=== PATIENT | female | born 1940 | race Caucasian/White ===

== ENCOUNTER 2017-08-18 13:26 | Emergency (ER) | payer OTHER, BC ==
--- NOTE | 2017-08-18 15:27 | RAD REPORT ---
EXAM DESCRIPTION: RAD - Hand Left 3 View - 08/18/2017 2:43 pm CLINICAL HISTORY: Blunt force trauma, injury distal third digit COMPARISON: None. FINDINGS: No fracture, dislocation or periosteal reaction noted. IP joint degenerative changes are p resent. There is degenerative change at the third MCP joint and mild degenerative change at the first carpal - metacarpal articulation. No air or foreign body in the soft tissues. IMPRESSION: No fracture identified. No foreign body.
--- NOTE | 2017-08-18 15:48 | ER ---
Nurse's Notes [facility] Name: Bernice Lund Age: 77 yrs Sex: Female : 1940 Arrival Date: 08/18/2017 Time: 13:30 Bed 12 Private MD: Trever Villareal V Diagnosis: Contusion of left index finger without damage to nail;Contusion of left middle finger without damage to nail Presentation: 08/18 13:39 Presenting complaint: Patient states: 30 mins ago, i slammed my index and the middle hj finger on my L hand on the garage door;. Transition of care: patient was not received from another setting of care. Onset of symptoms was August 18, 2017. Initial Sepsis Screen: Does the patient meet any 2 criteria? No. Patient's initial sepsis screen is negative. Does the patient have a suspected source of infection? No. Patient's initial sepsis screen is negative. Care prior to arrival: None. 13:39 Method Of Arrival: Ambulatory 13:39 Acuity: BONNIE 4 hj Triage Assessment: 13:44 General: Appears in no apparent distress. uncomfortable, Behavior is calm, cooperative, hj appropriate for age. Pain: Complains of pain in left hand Musculoskeletal: Reports pain in left hand. Injury Description: Crush injury. Historical: - Allergies: 13:44 nitrofurantoin; hj - Home Meds: 13:44 levothyroxine 50 mcg tab 1 tab once daily [Active]; Prednisolone 3 mg Oral once daily hj [Active]; atorvastatin 10 mg oral tab 1 tab once daily [Active]; - PMHx: 13:44 Hyperlipidemia; hj - PSHx: 13:44 bladder; Hernia repair; Hysterectomy; hj - Immunization history:: Adult Immunizations. - Family history:: not pertinent. - Social history:: Smoking status: Patient/guardian denies using tobacco. - Hospitalizations: : No recent hospitalization is reported. Screenin:09 Abuse screen: Denies threats or abuse. Nutritional screening: No deficits noted. la1 Tuberculosis screening: No symptoms or risk factors identified. Fall Risk None identified. Assessment: 15:09 General: Appears in no apparent distress. Behavior is calm, cooperative. Pain: la1 Complains of pain in palmar aspect of distal phalanx of left index finger and palmar aspect of middle phalanx of left index finger. Neuro: Level of Consciousness is awake, alert, obeys commands, Oriented to person, place, time, situation. Cardiovascular: Capillary refill < 3 seconds Patient's skin is warm and dry. Respiratory: No deficits noted. GI: No signs and/or symptoms were reported involving the gastrointestinal system. Vital Signs: 13:44 BP 165 / 72; Pulse 69; Resp 18; Temp 98.0(TE); Pulse Ox 96% on R/A; Weight 61.23 kg; hj Height 5 ft. 5 in. (165.10 cm); 13:44 Body Mass Index 22.46 (61.23 kg, 165.10 cm) hj ED Course: 13:30 Patient arrived in ED. rg4 13:30 Trever Villareal MD is Private Physician. rg4 13:40 Triage completed. hj 13:44 Arm band placed on right wrist. hj 14:15 Rosalie Bennett, RN is Primary Nurse. iw 14:21 Fred Landa MD is Attending Physician. rn 14:43 XRAY Hand LEFT 3 View In Process Unspecified. EDMS 15:09 Call light in reach. la1 15:09 No provider procedures requiring assistance completed. Patient did not have IV access la1 during this emergency room visit. 15:47 Trever Villareal MD is Referral Physician. rn Administered Medications: No medications were administered Outcome: 15:46 Discharged to home ambulatory. la1 15:46 Condition: stable 15:46 Discharge instructions given to patient, Instructed on discharge instructions, follow up and referral plans. Demonstrated understanding of instructions, follow-up care. 15:47 Discharge ordered by MD. rn 15:49 Patient left the ED. la1 Signatures: Dispatcher [employer] EDMS Rosalie Bennett, JIMMY MARQUEZ Fred Landa MD MD rn Attema, Lee, RN RN laCurry Hernández RN RN hj Garcia, Rubi rg4
--- NOTE | 2017-08-18 15:49 | EDPHYS ---
Physician Documentation [facility] Name: Bernice Lund Age: 77 yrs Sex: Female : 1940 Arrival Date: 08/18/2017 Time: 13:30 Bed 12 Private MD: Trever Villareal V ED Physician Fred Landa HPI: 08/18 15:44 This 77 yrs old Female presents to ER via Ambulatory with complaints of rn Finger Injury. 15:44 Trauma demographics: Location of Injury: The injury occurred at home. Mechanism of rn injury: Crush injury:. Associated injuries: The patient sustained left hand. Onset: The symptoms/episode began/occurred just prior to arrival. The patient has not experienced similar symptoms in the past. Reports was closing garage door manually, + left hand/fingers caught in partition.. Historical: - Allergies: 13:44 nitrofurantoin; hj - Home Meds: 13:44 levothyroxine 50 mcg tab 1 tab once daily [Active]; Prednisolone 3 mg Oral once daily hj [Active]; atorvastatin 10 mg oral tab 1 tab once daily [Active]; - PMHx: 13:44 Hyperlipidemia; hj - PSHx: 13:44 bladder; Hernia repair; Hysterectomy; hj - Immunization history:: Adult Immunizations. - Family history:: not pertinent. - Social history:: Smoking status: Patient/guardian denies using tobacco. - Hospitalizations: : No recent hospitalization is reported. ROS: 15:44 Constitutional: Negative for fever, chills, and weight loss, MS/Extremity: + left hand rn injury Exam: 15:44 Constitutional: This is a well developed, well nourished patient who is awake, alert, rn and in no acute distress. MS/ Extremity: Pulses equal, no cyanosis. Neurovascular intact. Full, normal range of motion. Equal circumference. + mild tenderness with blood blisters left index and middle finger tips, no deformity, approx 5% subungual hematomas. Vital Signs: 13:44 BP 165 / 72; Pulse 69; Resp 18; Temp 98.0(TE); Pulse Ox 96% on R/A; Weight 61.23 kg; hj Height 5 ft. 5 in. (165.10 cm); 13:44 Body Mass Index 22.46 (61.23 kg, 165.10 cm) hj MDM: 14:22 Patient medically screened. rn 15:44 Differential diagnosis: extremity fracture. Data reviewed: vital signs, nurses notes, rn radiologic studies, plain films, and as a result, I will discharge patient. Counseling: I had a detailed discussion with the patient and/or guardian regarding: the historical points, exam findings, and any diagnostic results supporting the discharge/admit diagnosis, radiology results, the need for outpatient follow up, to return to the emergency department if symptoms worsen or persist or if there are any questions or concerns that arise at home. Special discussion: I discussed with the patient/guardian in detail that at this point there is no indication for admission to the hospital. It is understood, however, that if the symptoms persist or worsen the patient needs to return immediately for re-evaluation. 08/18 13:47 Order name: XRAY Hand LEFT 3 View; Complete Time: 15:30 roz Administered Medications: No medications were administered Disposition: 08/18/17 15:47 Discharged to Home. Impression: Contusion of left index finger without damage to nail, Contusion of left middle finger without damage to nail. - Condition is Stable. - Discharge Instructions: Contusion, Hand Contusion. - Medication Reconciliation Form, Thank You Letter, Antibiotic Education, Prescription Opioid Use form. - Follow up: Trever Villareal MD; When: As needed; Reason: Recheck today's complaints, Re-evaluation by your physician. - Problem is new. - Symptoms have improved. Signatures: Dispatcher [employer] EDMS Fred Landa MD MD rn Attema, Lee, RN RN la1 Curry Anaya RN RN Corrections: (The following items were deleted from the chart) 15:49 15:47 08/18/2017 15:47 Discharged to Home. Impression: Contusion of left index finger la1 without damage to nail; Contusion of left middle finger without damage to nail. Condition is Stable. Forms are Medication Reconciliation Form, Thank You Letter, Antibiotic Education, Prescription Opioid Use. Follow up: Trever Villareal; When: As needed; Reason: Recheck today's complaints, Re-evaluation by your physician. Problem is new. Symptoms have improved. rn
[2017-08-18 15:57] VITALS: BP 165/72; TEMP 98; O2SAT 96
== END 2017-08-18 15:49 | disposition home or self-care (01) ==
LOC: ER 13:26
DX: S60.032A Contusion of left middle finger without damage to nail, initial encounter (principal); W23.0XXA Caught, crushed, jammed, or pinched between moving objects, initial encounter; Y93.9 Activity, unspecified; Y92.008 Other place in unspecified non-institutional (private) residence as the place of occurrence of the external cause; Z88.8 Allergy status to other drugs, medicaments and biological substances; E78.5 Hyperlipidemia, unspecified
CPT/HCPCS: 99283